=== PATIENT | female | born 1945 | race Caucasian/White ===

== ENCOUNTER 2017-12-31 07:01 | Observation (INO) | payer MEDICARE ==
--- NOTE | 2017-12-30 13:43 | Diagnostic Imaging Report ---
PROCEDURE: Frontal and lateral views of the chest. COMPARISON: None. INDICATIONS: PREOPERATIVE FOR KNEE SURGERY FINDINGS: Lines/tubes: None. Lungs: The lungs are well inflated and clear. There is no evidence of pneumonia or pulmonary edema. Pleura: There is no pleural effusion or pneumothorax. Heart and mediastinum: The heart and the mediastinum are normal. Bones: No acute bony abnormality. IMPRESSION: 1. No acute cardiopulmonary disease. Dictated by: Toñito Voss M.D. on 12/30/2017 at 13:52 Electronically approved by: Toñito Voss M.D. on 12/30/2017 at 13:52
[~2017-12-31] VITALS: Ht 147.3 cm; Wt 96.2 kg
[~2017-12-31 07:01] MED LIST: AMLODIPINE BESYL5 MG PO; BACITRACIN 50,000 UNIT VIAL ONE; HYDROCET 5-5001 EACH; HYDROCODONE-AP1 EACH; MUPIROCIN 2% OINT 22 GM TUBE ONE; ROPIVACAINE 246.25 MG, EPINEPHRINE HCL 1:1000 0.5 MG, CLONIDINE HCL 0.08 MG, KETOROLAC ... INJ ONE; TRANEXAMIC ACID 1,000 MG/10 ML ML ONE; Z TIROSINT; Z.0.ADIPEX-P37.5 M1; Z.0.DEXILANT60 MG; Z.0.GABAPENTIN100 MG; Z.0.PRAVACHOL20 MG; Z.0.TENORMIN25 MG; Z.0.ZANAFLEX4 M1; Z.0.ZESTRIL10 MG; [UNRECOGNIZED DRUG - OTHER]; [UNRECOGNIZED DRUG - OTHER]
--- OUTSIDE RECORDS SUMMARY | 2017-12-31 07:04 | XMS REPORT ---
Author Author [facility] Address Unknown Phone Unavailable Care Team Providers Care Employment Training Specialist Name Role Phone DELBERT CALDWELL Unavailable Unavailable Problems This patient has no known problems. Allergies, Adverse Reactions, Alerts This patient has no known allergies or adverse reactions. Medications This patient has no known medications. Results Test Description Test Time Test Comments Text Results Atomic Results Result Comments CHEST 2 VIEWS [place] [id number] Patient Name: KAHLIL BONILLA MR #: [id number] : 1945 Age/Sex: 72/F Req # : [id number] Adm Physician: Ordered by: DELBERT CALDWELL MD Report #: [id number] Location: OR Room/Bed: Procedure: [id number] DX/CHEST 2 VIEWS Exam Date: Exam Time: REPORT STATUS: Signed PROCEDURE: Frontal and lateral views of the chest. COMPARISON: None. INDICATIONS: PREOPERATIVE FOR KNEE SURGERY FINDINGS: Lines/tubes: None. Lungs: The lungs are well inflated and clear. There is no evidence of pneumonia or pulmonary edema. Pleura : There is no pleural effusion or pneumothorax. Heart and mediastinum: The heart and the mediastinum are normal. Bones: No acute bony abnormality. IMPRESSION: 1. No acute cardiopulmonary disease. Dictated by: Talon Voss M.D. on 12/30/2017 at 13:52 Electronically approved by: Talon Voss M.D. on 12/30/2017 at 13:52 Dictated By: TALON VOSS MD [id number] Transcribed By: ANN on 12/30/17 1352 COPY TO: DELBERT CALDWELL MD
[2017-12-31] MEDS ORDERED: DEXAMETHASONE SOD PHOS 10 MG/1 ML VIAL ONE (07:49)
[2017-12-31] MEDS ORDERED: GABAPENTIN 300 MG CAP ONE (07:49)
[2017-12-31] MEDS ORDERED: CELECOXIB 200 MG CAP ONE (07:49)
[2017-12-31] MEDS ORDERED: CEFAZOLIN SOD 2 GM/D5W 50ML 50 ML IV ONE (07:49)
[2017-12-31] MEDS: SODIUM CHLORIDE 0.9% 1000ML 1,000 ML IV SCH ×2 (10:11→20:11)
[2017-12-31] MEDS ORDERED: ZOLPIDEM TARTRATE 5 MG TAB PO PRN (10:15)
[2017-12-31] MEDS ORDERED: KETOROLAC TROMETHAMINE 30 MG/ML VIAL IV PRN (10:15)
[2017-12-31] MEDS ORDERED: HYDROCODONE/APAP 5MG-325MG TAB PO PRN (10:15)
[2017-12-31] MEDS ORDERED: DOCUSATE SODIUM 100 MG CAP PO PRN (10:15)
[2017-12-31] MEDS ORDERED: PROMETHAZINE HCL (IM) 25 MG/ML VIAL INJ PRN (10:15)
[2017-12-31] MEDS ORDERED: DIPHENHYDRAMINE HCL INJ 50 MG/ML VIAL IM/IV PRN (10:15)
[2017-12-31] MEDS ORDERED: ACETAMINOPHEN 650 MG SUPP PR PRN (10:15)
[2017-12-31] MEDS ORDERED: ONDANSETRON HCL INJ 2 MG/ML VIAL IV PRN (10:15)
[2017-12-31] MEDS ORDERED: FENTANYL CITRATE/PF 100MCG/2 ML INJ ONE ×2 (11:07→18:41)
--- NOTE | 2017-12-31 11:13 | Diagnostic Imaging Report ---
PROCEDURE: X-RAY LEFT KNEE, ONE OR TWO VIEWS COMPARISON: None. INDICATIONS:POST LEFT KNEE SURGERY FINDINGS: See conclusion. CONCLUSION: Status post total left knee replacement with surrounding soft tissue swelling, air and mignon consistent with recent surgery. No acute fractures. Dictated by: Pepe Rebolledo M.D. on 12/31/2017 at 11:23 Electronically approved by: Pepe Rebolledo M.D. on 12/31/2017 at 11:23
[2017-12-31] MEDS: ACETAMINOPHEN 1000 MG/100 ML IV SCH ×2 (12:00→17:49)
--- NOTE | 2017-12-31 13:57 | Operative Report ---
DATE OF PROCEDURE: December 31, 2017 RANGE RIDER: Forrest Lucia PA-C The patient was brought to the operating room for induction of anesthesia. Throughout this case, my PA's assistance was necessary for retraction of soft tissue and positioning of the extremity. This allows for efficient and technically successful execution of the operation and is considered medically necessary. PREOPERATIVE DIAGNOSIS: Osteoarthritis left knee with morbid obesity. POSTOPERATIVE DIAGNOSIS: Osteoarthritis left knee with morbid obesity. PROCEDURE: Left total knee arthroplasty with added complexity secondary to obesity. INDICATIONS: The patient is a 72-year-old lady who has severe end-stage arthritis of both knees. She has a long history of obesity. She has been through bariatric surgery and plastic surgery for excision of excessive skin. These incisions have healed. She is highly motivated to proceed with left total knee arthroplasty. The risks and benefits have been explained. The added risks for complications due to her body mass index over 44 have been explained. She accepts these increased risk. She wishes to proceed with the operation. DESCRIPTION OF PROCEDURE: The patient was brought to the operating room and placed under general anesthetic. She received prophylactic antibiotics, a regional block and tranexamic acid in the holding area. A tourniquet was placed on the upper thigh. Throughout preparation of the case and during the case, added time and personnel were necessary due to the patient's body mass index. The left lower extremity was carefully prepped and draped in a sterile manner. A preoperative time out was performed. The extremity was carefully exsanguinated, and a proximal tourniquet was inflated to 350 mmHg. An anterior approach with a medial parapatellar arthrotomy was performed. Care was taken to make sure to address her skin folds. Deep and abundant subcutaneous adipose tissue was encountered. Efforts were made to limit the amount of planes of dissection to diminish potential space. Soft-tissue releases were carefully performed. The knee was brought up into flexion with the patella everted. The meniscal remnants, marginal osteophytes and remnants of the cruciate ligaments were sacrificed. A Shore [employer] Nephew Kia II posterior stabilized knee system was used. The proximal tibia was ultimately and carefully exposed. I elected to use an intramedullary cutting guide due to her body habitus. The proximal tibia was resected, and the tibial baseplate was sized at a number 3 component. The central fin punch was impacted, and attention was directed towards the distal femur. An intramedullary cutting guide was used to resect the distal femur in 6 degrees of valgus and rotation referenced off of a combination of landmarks including Marin's line, the epicondylar axis and the posterior condyles. The femoral component was a size number 4. The anterior and posterior chamfer cuts were made. Trial reductions were performed. I felt an 11 mm ultracongruent tibial insert provided satisfactory soft-tissue balancing in flexion and extension. Consideration was given for using a posted posterior stabilized implant. However, due to the size of her knee, I was concerned about resecting the notch. We elected to proceed with the ultracongruent insert. The patella was resurfaced with a 29 mm x 9 mm patellar button. The thickness was checked before and after and was 21 mm. Patellar tracking was felt to be concentric. The trial implants were then all removed. A 100 mL premixed pericapsular injection was placed into the soft tissue. The components were cemented into place using a single mix of high-viscosity Simplex cement preloaded with antibiotics. Care was taken to remove all extravasated cement. The wound was further irrigated with a shower-tip pulsatile lavage while the cement cured. The arthrotomy was then carefully closed with numerous interrupted number 1 Ethibond. The knee was put through flexion and extension after each stitch to ensure a secure closure of the arthrotomy. The skin was carefully closed with subcuticular Vicryl and mignon. We elected to use a sterile Wound VAC due to the abundant subcutaneous adipose tissue. This was applied, and the patient was extubated. She was transported to the recovery room in stable condition. Job#: [id number] MARICHUY
[2017-12-31] MEDS ORDERED: CEFAZOLIN SOD 1 GM/NS 50ML 50 ML IV SCH (14:00)
[2017-12-31] MEDS: HYDROCODONE/APAP 7.5MG-325MG 1 EA TAB PO PRN (14:25)
[2017-12-31 14:33] VITALS: BP 122/59
[2017-12-31 15:12] VITALS: BP 122/59
[2017-12-31] MEDS: ASPIRIN 325 MG TAB PO SCH (16:31)
[2017-12-31] MEDS: CEFAZOLIN SOD 1 GM VIAL IV SCH (16:31)
[2017-12-31] MEDS: CELECOXIB 100 MG CAP PO SCH (16:31)
[2017-12-31 16:50] VITALS: BP 121/59
[2017-12-31] MEDS: DOCUSATE SODIUM 100 MG CAP PO SCH (17:48)
[2017-12-31] MEDS ORDERED: DEXAMETHASONE SOD PHOS INJ 4 MG/ML VIAL ONE (18:14)
[2017-12-31] MEDS ORDERED: ONDANSETRON HCL INJ 2 MG/ML VIAL ONE (18:14)
[2017-12-31] MEDS ORDERED: DESFLURANE 240 ML BTL INH ONE (18:14)
[2017-12-31] MEDS ORDERED: ACETAMINOPHEN 1000 MG/100 ML IV ONE (18:14)
[2017-12-31] MEDS ORDERED: PROPOFOL IV EMULSION 10 MG/ML 20 ML VIAL ONE (18:14)
[2017-12-31] MEDS ORDERED: KETOROLAC TROMETHAMINE 30 MG/ML VIAL ONE (18:14)
[2017-12-31] MEDS ORDERED: EPHEDRINE SULFATE INJ 50 MG/10 ML SYR ONE (18:14)
[2017-12-31] MEDS ORDERED: LIDOCAINE HCL 2% LOCAL 20 ML VIAL ONE (18:26)
[2017-12-31] MEDS ORDERED: ROPIVACAINE 0.5% 5 MG/ML 30 ML SDV ONE (18:26)
[2017-12-31] MEDS ORDERED: MIDAZOLAM HCL 2 MG/2 ML VIAL ONE (18:41)
[2017-12-31 20:00] VITALS: BP 117/58
[2017-12-31 20:31] VITALS: BP 117/58
[2018-01-01] VITALS (7 sets, daily range): BP systolic 113–139; BP diastolic 57–70
[2018-01-01] MEDS: ACETAMINOPHEN 1000 MG/100 ML IV SCH ×2 (00:45→06:50)
[2018-01-01] MEDS: CEFAZOLIN SOD 1 GM VIAL IV SCH ×3 (00:45→17:14)
[2018-01-01] MEDS ORDERED: LEVOTHYROXINE SODIUM 25 MCG TABLET PO SCH (06:00)
[2018-01-01] MEDS: TIROSINT 13 MCG PO SCH (06:00)
[2018-01-01] MEDS: SODIUM CHLORIDE 0.9% 1000ML 1,000 ML IV SCH ×2 (06:11→16:11)
[2018-01-01 07:19] LABS: HEMATOCRIT 30.2 % (34.2-44.1); HEMOGLOBIN 9.9 g/dL (12.0-16.0); LYMPHOCYTES # (AUTO) 0.8 (1.0-3.2); LYMPHOCYTES % 10.6 % (18.0-39.1); MEAN CORPUSCULAR HEMOGLOBIN 30.1 pg (28-32); MEAN CORPUSCULAR HGB CONC 32.8 g/dL (31-35); MEAN CORPUSCULAR VOLUME 91.8 fL (81-99); MONOCYTES # (AUTO) 0.5 (0.2-0.8); MONOCYTES % 5.7 % (4.4-11.3); NEUTROPHILS # (AUTO) 6.6 (2.1-6.9); NEUTROPHILS % 83.2 % (38.7-80.0); PLATELET COUNT 144 x10e3/uL (140-360); RED BLOOD COUNT 3.29 x10e6/uL (3.6-5.1); RED CELL DISTRIBUTION WIDTH 11.6 % (11.7-14.4)
[2018-01-01 07:41] LABS: ALANINE AMINOTRANSFERASE 33 IU/L (0-55); ALBUMIN 2.6 g/dL (3.5-5.0); ALKALINE PHOSPHATASE 82 IU/L (40-150); ANION GAP 12.5 mmol/L (8-16); BILIRUBIN,DIRECT 0.2 mg/dL (0.0-5.0); BLOOD UREA NITROGEN 18 mg/dL (7-26); BUN/CREATININE RATIO 23 (6-25); CALCIUM 7.7 mg/dL (8.4-10.2); CARBON DIOXIDE 20 mmol/L (22-29); CHLORIDE 92 mmol/L (98-107); CREATININE, SERUM 0.79 mg/dL (0.57-1.11); EST GLOMERULAR FILTRATION RATE > 60 ML/MIN (60-); GLUCOSE 127 mg/dL (74-118); MAGNESIUM 1.3 MG/DL (1.3-2.1); POTASSIUM 3.5 mmol/L (3.5-5.1); SODIUM 121 mmol/L (136-145)
[2018-01-01 07:43] LABS: CHOL/HDL RATIO 4.3 (3.0-3.6)
[2018-01-01] MEDS: FAMOTIDINE 20 MG TAB PO SCH ×2 (08:45→17:15)
[2018-01-01] MEDS: GABAPENTIN 100 MG CAP PO SCH (08:45)
[2018-01-01] MEDS: ASPIRIN 325 MG TAB PO SCH ×2 (08:45→17:15)
[2018-01-01] MEDS: DOCUSATE SODIUM 100 MG CAP PO SCH ×2 (08:45→17:15)
[2018-01-01] MEDS: LISINOPRIL 10 MG TAB PO SCH (08:45)
[2018-01-01] MEDS: HYDROCODONE/APAP 7.5MG-325MG 1 EA TAB PO PRN (08:45)
[2018-01-01] MEDS: CELECOXIB 100 MG CAP PO SCH ×2 (08:45→17:15)
[2018-01-01] MEDS: AMLODIPINE BESYLATE 5 MG TAB PO SCH (08:45)
[2018-01-01] MEDS: ATENOLOL 50 MG TAB PO SCH (08:45)
[2018-01-01] MEDS: SENNA-S TABLET PO SCH (09:00)
[2018-01-01] MEDS ORDERED: ASPIRIN325 MG PO (09:03)
--- NOTE | 2018-01-01 09:23 | Consultation ---
DATE OF CONSULTATION: MEDICAL CONSULTATION REASON FOR CONSULTATION: Medical management. CHIEF COMPLAINT: Left knee severe osteoarthritis. HISTORY OF PRESENT ILLNESS: This is a 72-year-old woman with severe left knee osteoarthritis now for elective left knee replacement. The patient underwent the procedure, and currently her pain is about 7/10. She is not passing any flatus. No chest pain or shortness of breath. PAST MEDICAL HISTORY: Stroke in 2004, IBS, osteoporosis, COPD/asthma, fibromyalgia, morbid obesity, diverticulitis/diverticulosis, diabetes mellitus, type 2. PAST SURGICAL HISTORY: times 2, cholecystectomy, tonsillectomy, gastric sleeve in June 2016, thigh lift. ALLERGIES: PER ELECTRONIC MEDICAL RECORD. FAMILY HISTORY/SOCIAL HISTORY: Patient is . She has 2 children. No alcohol, illicits or cigarettes. MEDICATIONS: Per electronic medical record. REVIEW OF SYSTEMS: Denies any dizziness or chest pain. PHYSICAL EXAMINATION VITAL SIGNS: Reviewed. GENERAL: A tired-appearing woman resting in bed. HEENT: Anicteric. Pupils respond to light. No oral lesions. CARDIOVASCULAR: Normal S1 and S2. LUNGS: Moderate breath sounds. ABDOMEN: Soft, nontender and nondistended. EXTREMITIES: She has left knee with dressing in place clean and dry. No edema. SKIN: Dry. PSYCHIATRIC: Normal affect. LABS: Reviewed. MEDICATIONS: Reviewed. ASSESSMENT AND PLAN: This is a 72-year-old woman with: 1. Severe osteoarthritis of the left knee, status post total knee replacement: Physical therapy starting today. 2. Left knee pain: Pain control with medications. 3. Morbid obesity/history of diabetes mellitus, type 2: Obtain hemoglobin A1c and lipid panel. 4. Hypertension: Continue home medications. 5. Normocytic anemia, mild to moderate: Will follow. 6. Prophylaxis: Continue aspirin b.i.d. and Pepcid. 7. Bowel regimen: Add Senna and Colace. 8. Disposition: Obtain labs this morning and start physical therapy. Job#: [id number] LEIDY
[2018-01-01] MEDS ORDERED: ACETAMINOPHEN 1000 MG/100 ML IV PRN (10:15)
[2018-01-02] VITALS: BP 121/58
[2018-01-02] MEDS: HYDROCODONE/APAP 7.5MG-325MG 1 EA TAB PO PRN ×2 (00:33→05:00)
[2018-01-02] MEDS: CEFAZOLIN SOD 1 GM VIAL IV SCH ×2 (00:36→11:03)
[2018-01-02 04:00] VITALS: BP 128/59
[2018-01-02] MEDS: TIROSINT 13 MCG PO SCH (05:47)
[2018-01-02 06:45] LABS: HEMOGLOBIN 10.6 g/dL (12.0-16.0)
[2018-01-02 08:52] VITALS: BP 130/61
[2018-01-02] MEDS: DOCUSATE SODIUM 100 MG CAP PO SCH (11:03)
[2018-01-02] MEDS: GABAPENTIN 100 MG CAP PO SCH (11:03)
[2018-01-02] MEDS: ASPIRIN 325 MG TAB PO SCH (11:03)
[2018-01-02] MEDS: FAMOTIDINE 20 MG TAB PO SCH (11:03)
[2018-01-02] MEDS: CELECOXIB 100 MG CAP PO SCH (11:03)
[2018-01-02] MEDS: ATENOLOL 50 MG TAB PO SCH (11:04)
[2018-01-02] MEDS: LISINOPRIL 10 MG TAB PO SCH (11:04)
[2018-01-02] MEDS: AMLODIPINE BESYLATE 5 MG TAB PO SCH (11:04)
[2018-01-02] MEDS: SENNA-S TABLET PO SCH (11:04)
[2018-01-02 12:16] VITALS: BP 148/62
== END 2018-01-02 12:36 | disposition home health service (06) ==
LOC: OR 07:01 → MED/SURG 13:22 → INTOOBSV 13:22
PROVIDERS: ADMIT Specialist; ATTEND Specialist
DX: M17.12 Unilateral primary osteoarthritis, left knee (principal); E66.01 Morbid (severe) obesity due to excess calories; E11.9 Type 2 diabetes mellitus without complications; Z68.41 Body mass index [BMI] 40.0-44.9, adult; E03.9 Hypothyroidism, unspecified; K21.9 Gastro-esophageal reflux disease without esophagitis; M79.7 Fibromyalgia; J44.9 Chronic obstructive pulmonary disease, unspecified; Z98.84 Bariatric surgery status; Z86.73 Personal history of transient ischemic attack (TIA), and cerebral infarction without residual deficits; K58.9 Irritable bowel syndrome, unspecified; I10 Essential (primary) hypertension; D64.9 Anemia, unspecified
CPT/HCPCS: 27447; 36415 ×2; 71046; 73560; 80048; 80061; 80076; 83036; 83735; 85014; 85018; 85025; 86850; 86900; 86920; 97110; 97116 ×2; 97139 ×2; 97162; 97530 ×3; C1713; G0378 ×3; G8978; G8979; J0171; J0690 ×3; J1100 ×2; J1885 ×2; J2001; J2250; J2405 ×2; J2795

== ENCOUNTER 2018-02-09 20:05 | Emergency (ER) | payer MEDICARE ==
[~2018-02-09] VITALS: Ht 142.2 cm; Wt 96.2 kg
[~2018-02-09 20:05] MED LIST changes: +ASPIRIN325 MG PO; -BACITRACIN 50,000 UNIT VIAL ONE; -MUPIROCIN 2% OINT 22 GM TUBE ONE; -ROPIVACAINE 246.25 MG, EPINEPHRINE HCL 1:1000 0.5 MG, CLONIDINE HCL 0.08 MG, KETOROLAC ... INJ ONE; -TRANEXAMIC ACID 1,000 MG/10 ML ML ONE
--- OUTSIDE RECORDS SUMMARY | 2018-02-09 20:07 | XMS REPORT | Continuity of Care Document ---
Author Author [facility] Organization [facility] Address [address] [place] [address] Phone Unavailable Care Team Providers Care Emergency Vehicle Operator Name Role Phone KAMLESH PLASCENCIA MD PCP Insurance Providers Guarantor Mike Bonilla Address [address] [address] Payer [facility] Policy Number [id number] Subscriber's Name Mike Bonilla Relationship 18 Self / Same As Patient Effective Date 17 Payer [facility] Policy Number [id number] Subscriber's Name Mike Bonilla Relationship 18 Self / Same As Patient Group Number [id number] Group Name RETIRED Effective Date 08 Advance Directives Directive Response Recorded Date/Time Does the patient have an advance directive? No 12/31/17 2:10pm If yes, is advance directive on file with [facility]? No 12/31/17 2:10pm If not on file with [facility] will patient provide a copy? No 12/31/17 2:10pm Do you have a Directive to Physician? No 12/30/17 11:23am Do you have a Medical Power of Thermo Cementing Folder Operator? No 12/30/17 11:23am Do you have an out of hospital Do Not Resuscitate Order? No 12/30/17 11:23am Do you have any special needs we should be aware of? No 12/30/17 11:23am Do you have a support person here with you today? Yes 12/30/17 11:23am Did patient receive Notice of Privacy Practices? Yes 12/30/17 11:23am Did patient receive patient rights and responsibilities? Yes 12/30/17 11:23am Problems No problem information available. Medications Current Home Medications Medication Dose Units Route Directions Days Qty Instructions Start Date Amlodipine Besylate 5 Mg Tablet 5 Mg Oral Daily 30 Tab Aspirin 325 Mg Tablet 325 Mg Oral Twice A Day 21 Days 01/01/18 Atenolol (Tenormin) 25 Mg Tablet Gabapentin 100 Mg Capsule Hydrocodone Bit/Acetaminophen (Hydrocodone-Apap 10-325 Mg Tab) 1 Each Tablet Levothyroxine Sodium (Tirosint) 13 Mcg Capsule Lisinopril (Zestril) 10 Mg Tablet Tizanidine Hcl (Zanaflex) 4 Mg Capsule Past Home Medications Medication Directions Ordered Status Dexlansoprazole (Dexilant) 60 Mg Cap., Discontinued Hydrocodone Bit/Acetaminophen (Hydrocet 5-500 Capsule) 1 Each Capsule, Discontinued Metoclopramide Hcl 5 Mg Tablet, Discontinued Phentermine Hcl (Adipex-P) 37.5 Mg Tablet, Discontinued Pravastatin Sodium (Pravachol) 20 Mg Tablet, Discontinued Promethazine Hcl (Phenergan) 25 Mg Supp.rect, Discontinued Family History Relationship Condition Age at Onset Recorded Date/Time 33 Father FH: cancer Unknown 12/31/2017 3:46pm 32 Mother Family history of arterial disease Unknown 12/31/2017 3:45pm 32 Mother Family history of asthma Unknown 12/31/2017 3:46pm 09 Sister FH: COPD (chronic obstructive pulmonary disease) Unknown 2017 3:46pm 09 Sister Family history of diabetes mellitus Unknown 12/31/2017 3:47pm 09 Sister Family history of hypertension Unknown 12/31/2017 3:47pm 19 Son FH: thyroid disease Unknown 12/31/2017 3:47pm Social History Social History Problem Response Recorded Date/Time Onset Date Status Hx Psychiatric Problems No 12/31/2017 2:10pm Not Applicable Not Applicable Hx Eating Disorder No 12/31/2017 2:10pm Not Applicable Not Applicable Hx Substance Use Disorder No 12/31/2017 2:10pm Not Applicable Not Applicable Hx Depression No 12/31/2017 2:10pm Not Applicable Not Applicable Hx Alcohol Use No 12/31/2017 2:10pm Not Applicable Not Applicable Hx Substance Use Treatment No 12/31/2017 2:10pm Not Applicable Not Applicable Hx Physical Abuse No 12/31/2017 2:10pm Not Applicable Not Applicable Hospital Discharge Instructions No hospital discharge instruction information available. Plan of Care Discharge Date 01/02/18 12:36pm Disposition HOME HEALTH SERVICE Instructions/Education Provided Post Operative Pain Prescriptions See Medication Section Referrals (Orthopedic) Order Date: 01/06/2018 Entered Date: 01/01/2018 9:06am Additional Instructions/Education MAY SHOWER COVER COVER WOUND VAC WITH SERAN WRAP, DO NOT GET WOUND VAC WET ACTIVITY TOLERATED DO NOT REMOVE WOUND VAC FOLLOW UP WITH DR CALDWELL ON Saturday01/06/18 TAKE MEDICATIONS PERSCRIBED NOTIFY DR FRIEDMAN FOR FEVER GREATER THAN 101, INCREASED PAIN NOT RELIEVED BY PAIN MEDICIATION, FOUL ODOR COMING FROM INCISION SITE. Functional Status Query Response Date Recorded FUNCTIONAL STATUS . December 31, 2017 3:24pm Assistive Devices Straight Cane Rolling Walker December 31, 2017 3:12pm Ambulation Ability Minimum Assistance 1 person assist December 31, 2017 3:12pm Toileting Ability Minimum Assistance January 01, 2018 6:51pm Allergies, Adverse Reactions, Alerts No known allergies. Immunizations No immunization information available. Vital Signs Acute Vital Signs Vital Response Date/Time Temperature (Fahrenheit) 97.1 degrees F (97.6 - 99.5) 01/02/2018 12:16pm Pulse Pulse Rate (adult) 56 bpm (60 - 90) 01/02/2018 12:16pm Respiratory Rate 20 bpm (12 - 24) 01/02/2018 12:16pm Blood Pressure 148/62 mm Hg 01/02/2018 12:16pm Height 4 ft 10 in 12/31/2017 2:10pm Weight 212 lb 12/31/2017 2:10pm Body Mass Index 44.3 kg/m^2 12/31/2017 2:10pm Results Laboratory Results Test Name Result Units Flags Reference Collection Date/Time Result Date/ Time Comments White Blood Count 7.93 x10e3/uL 4.8-10.8 01/01/2018 7:00am 01/01/2018 7 :29am Red Blood Count 3.29 x10e6/uL L 3.6-5.1 01/01/2018 7:00am 01/01/2018 7: 29am Hemoglobin 10.6 g/dL L 12.0-16.0 01/02/2018 6:20am 01/02/2018 6:47am Hematocrit 33.0 % L 34.2-44.1 01/02/2018 6:20am 01/02/2018 6:47am Mean Corpuscular Volume 91.8 fL 81-99 01/01/2018 7:00am 01/01/2018 7: 29am Mean Corpuscular Hemoglobin 30.1 pg 28-32 01/01/2018 7:00am 01/01/2018 7:29am Mean Corpuscular Hemoglobin Concent 32.8 g/dL 31-35 01/01/2018 7:00am 01/01/2018 7:29am Red Cell Distribution Width 11.6 % L 11.7-14.4 01/01/2018 7:00am 2017 7:29am Platelet Count 144 x10e3/uL 140-360 01/01/2018 7:00am 01/01/2018 7: 29am Neutrophils (%) (Auto) 83.2 % H 38.7-80.0 01/01/2018 7:00am 01/01/2018 7 :29am Lymphocytes (%) (Auto) 10.6 % L 18.0-39.1 01/01/2018 7:00am 01/01/2018 7 :29am Monocytes (%) (Auto) 5.7 % 4.4-11.3 01/01/2018 7:00am 01/01/2018 7: 29am Eosinophils (%) (Auto) 0.0 % 0.0-6.0 01/01/2018 7:00am 01/01/2018 7: 29am Basophils (%) (Auto) 0.0 % 0.0-1.0 01/01/2018 7:00am 01/01/2018 7:29am IM GRANULOCYTES % 0.5 % 0.0-1.0 01/01/2018 7:00am 01/01/2018 7:29am Neutrophils # (Auto) 6.6 2.1-6.9 01/01/2018 7:00am 01/01/2018 7:29am Lymphocytes # (Auto) 0.8 L 1.0-3.2 01/01/2018 7:00am 01/01/2018 7: 29am Monocytes # (Auto) 0.5 0.2-0.8 01/01/2018 7:00am 01/01/2018 7:29am Eosinophils # (Auto) 0.0 0.0-0.4 01/01/2018 7:00am 01/01/2018 7:29am Basophils # (Auto) 0.0 0.0-0.1 01/01/2018 7:00am 01/01/2018 7:29am Absolute Immature Granulocyte (auto 0.04 x10e3/uL 0-0.1 01/01/2018 7: 00am 01/01/2018 7:29am Sodium Level 121 mmol/L L 136-145 01/01/2018 7:00am 01/01/2018 7:43am Potassium Level 3.5 mmol/L 3.5-5.1 01/01/2018 7:00am 01/01/2018 7:43am Chloride Level 92 mmol/L L 98-107 01/01/2018 7:00am 01/01/2018 7:43am Carbon Dioxide Level 20 mmol/L L 22-29 01/01/2018 7:00am 01/01/2018 7: 43am Anion Gap 12.5 mmol/L 8-16 01/01/2018 7:00am 01/01/2018 7:43am Blood Urea Nitrogen 18 mg/dL 7-01/01/2018 7:00am 01/01/2018 7:43am Creatinine 0.79 mg/dL 0.57-1.11 01/01/2018 7:00am 01/01/2018 7:43am BUN/Creatinine Ratio 23 6-25 01/01/2018 7:00am 01/01/2018 7:43am Estimat Glomerular Filtration Rate > 60 ML/MIN 60- 01/01/2018 7:00am 7:43am Ranges were taken from the National Kidney Disease Education Program and the National Kid[employer] Foundation literature. Reference ranges: 60 or greater: Normal 16-59 (for 3 consecutive months): Chronic kidney disease 15 or less: Kidney failure Glucose Level 127 mg/dL H 74-118 01/01/2018 7:00am 01/01/2018 7:43am Calcium Level 7.7 mg/dL L 8.4-10.2 01/01/2018 7:00am 01/01/2018 7:43am Hemoglobin A1c Percent 4.9 % 4.0-7.0 01/01/2018 7:00am 01/01/2018 8: 10am Magnesium Level 1.3 MG/DL 1.3-2.1 01/01/2018 7:00am 01/01/2018 7:43am Total Bilirubin 0.3 mg/dL 0.2-1.2 01/01/2018 7:00am 01/01/2018 7:43am Direct Bilirubin 0.2 mg/dL 0.0-5.0 01/01/2018 7:00am 01/01/2018 7:43am Aspartate Amino Transf (AST/SGOT) 37 IU/L H 5-34 01/01/2018 7:00am 01/01 7:43am Alanine Aminotransferase (ALT/SGPT) 33 IU/L 0-55 01/01/2018 7:00am 05/2018 7:43am Total Protein 5.5 g/dL L 6.5-8.1 01/01/2018 7:00am 01/01/2018 7:43am Albumin 2.6 g/dL L 3.5-5.0 01/01/2018 7:00am 01/01/2018 7:43am Alkaline Phosphatase 82 IU/L 40-150 01/01/2018 7:00am 01/01/2018 7: 43am Triglycerides Level 54 MG/DL 0-149 01/01/2018 7:00am 01/01/2018 7:53am Cholesterol Level 115 MD/DL 0-199 01/01/2018 7:00am 01/01/2018 7:53am Less than 200 mg/dL Low Risk 201 - 239 mg/dL Borderline Risk 240 mg/dl and greater High Risk LDL Cholesterol 77 MG/DL 60-130 01/01/2018 7:00am 01/01/2018 7:53am HDL Cholesterol 27 MG/DL L 40-60 01/01/2018 7:00am 01/01/2018 7:53am Cholesterol/HDL Ratio 4.3 H 3.0-3.6 01/01/2018 7:00am 01/01/2018 7: 53am Procedures Procedure Status Date Provider(s) Total replacement of left knee joint Completed 12/31/17 DELBERT CALDWELL MD X-ray of chest, two views Active 12/30/17 DELBERT CALDWELL MD Encounters Encounter Location Arrival/Admit Date Discharge/Depart Date Attending Provider Discharged Inpatient (obs) [facility] 12/31/17 1:22pm 07/12 12:36pm DELBERT CALDWELL MD
[2018-02-09] MEDS ORDERED: HYDROCODONE/APAP 10MG-325MG TAB PO ONE (20:15)
--- NOTE | 2018-02-09 20:58 | Diagnostic Imaging Report ---
KNEE LEFT THREE VIEWS Comparison: None Clinical history: Left knee pain Findings: Postsurgical changes status post total left knee arthroplasty. No evidence of hardware loosening or fracture. Impression: No acute bony abnormality Signed by: Dr Nelly Abad MD on 02/09/2018 8:55 PM
--- NOTE | 2018-02-10 10:29 | Cardiology Report ---
DATE OF STUDY: DOPPLER SCAN OF LEFT LEG VEINS The left leg veins were interrogated using the duplex scanning method. The veins were compressible. There was no definite deep venous thrombosis. CONCLUSIONS 1. No definite deep venous thrombosis seen on the left leg veins. 2. The right leg was not studied. Job#: [id number] RI cc: KRISTINA BELL M.D.
== END 2018-02-09 21:50 | disposition home or self-care (01) ==
LOC: ER 20:05
DX: M25.562 Pain in left knee (principal); G89.29 Other chronic pain; I10 Essential (primary) hypertension; E11.9 Type 2 diabetes mellitus without complications; J44.9 Chronic obstructive pulmonary disease, unspecified; M79.7 Fibromyalgia; Z98.84 Bariatric surgery status
CPT/HCPCS: 93971; 99284